=== PATIENT | female | born 1955 | race Caucasian/White ===

== ENCOUNTER 2017-01-31 11:40 | Day surgery (SDC) | payer MEDICARE ==
[~2017-01-31] VITALS: Ht 154.9 cm; Wt 60.5 kg
--- NOTE | ~2017-01-31 | OP ---
PATIENT NAME: SHYAM LÓPEZ MEDICAL RECORD: [id number] :51 LOCATION:[facility] ADMISSION DATE: SURGEON: MARK CASTILLO DO DATE OF OPERATION: 01/31/2017 PROCEDURE: EGD with biopsies. INDICATIONS FOR PROCEDURE: Epigastric abdominal pain and abnormal weight loss. SCOPE: Olympus video gastroscope. MEDICATIONS: Propofol 200 mg IV per anesthesia. ESTIMATED BLOOD LOSS: Minimal. FINDINGS: Informed consent was given. The patient was made comfortable with the above medication. After reaching an adequate level of sedation by slow IV push, the patient was placed on her left side. The endoscope was then advanced under direct visualization through the mouth to the second portion of the duodenum. There was some evidence of mild candidal esophagitis in the proximal, middle, and distal third of the esophagus. At the GE junction, there was some evidence of mild LA class A reflux induced esophagitis. The endoscope was advanced through the GE junction and retroflexed to view the cardia, where a small sliding hiatal hernia was present. On normal 4-view, the body and antrum of the stomach appeared normal. The endoscope was advanced beyond the pylorus into the duodenum where the bulb and second portion of the duodenum appeared normal. It was then withdrawn back into the stomach and random biopsies were taken from the antrum, incisura, and body of the stomach to submit for histology and to rule out H. pylori. The endoscope was then withdrawn from the patient. The patient tolerated the procedure well and there were no complications. IMPRESSIONS: 1. Esophageal candidiasis. 2. Reflux esophagitis, LA class A. 3. Small sliding hiatal hernia. PLAN AND RECOMMENDATIONS: 1. Discharge home when recovery parameters are met. 2. Diflucan 100 mg daily times 21 days with 2 tablets taken day 1. 3. Consider checking a fecal pancreatic elastase and a fecal fat content and resuming Creon if evidence of exocrine insufficiency. The patient's abdominal pain may be related to a recent diagnosis of pancreatitis. If this is the case, she may benefit from chronic pain management. We will await treatment of her esophageal candidiasis and reevaluate her symptoms. TRANSINT:[id number] Voice Confirmation ID: [id number] DOCUMENT ID: [id number] OPERATIVE REPORT [id number] SHYAM LÓPEZMARK MAKI DO CC: [id number] DICTATION DATE: 01/31/17 1446 [employer] SUPERVISOR: 02/01/17 0020 [facility] 01/31/17 [facility] [address] [facility] [address]
[~2017-01-31 11:40] MED LIST: ASPIRIN325 MG PO; BAYER CHEWABLE81 MG PO; CELEXA40 MG PO; PLAVIX75 MG PO; PRINIVIL20 MG PO; PROTONIX40 MG PO; SYMBICORT 16010.2 GM INH; TAMOXIFEN CITRA20 MG PO; ZANTAC150 MG PO
[2017-01-31 12:43] LABS: BASOPHILS 0.6 % (0-2); EOSINOPHILS 4.4 % (0-7); HEMATOCRIT 39.8 % (36.0-48.0); HEMOGLOBIN 12.7 g/dL (12-16); IMMATURE GRANULOCYTES 0.2 % (0-5); LYMPHOCYTES 25.6 % (15-50); MCH 32.1 pg (26.0-34.0); MCHC 31.9 g/dL (31.0-37.0); MCV 100.5 fL (80.0-100.0); MEAN PLATELET VOLUME 10.3 fL (7.4-10.4); NEUTROPHILS 61.2 % (40-80); PLATELET COUNT 185 10x3/uL (130-400); RBC 3.96 10x6/uL (4.00-5.40); RDW 13.8 % (11.5-14.5); WBC 6.4 10x3/uL (4.8-10.8)
[2017-01-31] MEDS ORDERED: PROVENTIL HFA6.7 GM INH (12:49)
[2017-01-31 12:55] VITALS: BP 107/64; Ht 154.9 cm; Wt 60.5 kg
[2017-01-31 13:02] LABS: ALBUMIN 3.3 g/dL (3.4-5.0); ALKALINE PHOSPHATASE 47 U/L (46-116); ALT (SGPT) 19 U/L (10-68); BILIRUBIN - TOTAL 0.26 mg/dL (0.2-1.3); CALC OSMOLALITY 282 mosm/kg (275-300); CALCIUM 8.5 mg/dL (8.5-10.1); CARBON DIOXIDE 28.6 mmol/L (21.0-32.0); CHLORIDE - SERUM 107 mmol/L (98-107); CREATININE - SERUM 0.8 mg/dL (0.6-1.3); GLUCOSE 95 mg/dL (74-106); PROTEIN - SERUM 6.9 g/dL (6.4-8.2); SODIUM 142 mmol/L (136-145); UREA NITROGEN 12 mg/dL (7-18); eGFR NON AFRICAN AMERICAN 77 mL/min (90-120)
[2017-01-31 13:21] LABS: APTT 23.1 SECONDS (22.8-39.4); INR 0.96 (0.85-1.17); PROTIME 12.6 SECONDS (11.6-15.0)
--- NOTE | 2017-01-31 15:35 | NUR ---
1455- BACK TO ROOM WITH HOB ELEVATED, SPOKE WITH ABOUT PROCEDURE. 1520- REPIRATORY AT BEDSIDE ADMINISTERING BREATHING TREATMENT. REMAINS AT BEDSIDE. WILL MONITOR. VSS. 1525- FULL LIQUIDS OFFERED.
--- NOTE | 2017-01-31 17:09 | NUR ---
1545- PT SITTING UP WITH HOB ELEVATED. RESP EFFORT EVEN/UNLABORED 1600- IV D/C'D, PT TOLERATED. CATHETER INTACT. 1620- PRESCRIPTION CALLED TO [email or web address] [facility] PER PT REQUEST. 1625- DISCHARGE INSTRUCTIONS COMPLETED, PT VERBALIZES UNDERSTANDING. PAPERWORK SIGNED. 1630- PT DISCHARGED VIA WHEELCHAIR WITH .
== END 2017-01-31 16:30 | disposition home or self-care (01) ==
LOC: D.OPS 11:40
PROVIDERS: Anesthesiology
DX: R10.13 Epigastric pain (principal); R63.4 Abnormal weight loss; K44.9 Diaphragmatic hernia without obstruction or gangrene; K21.0 Gastro-esophageal reflux disease with esophagitis; B37.81 Candidal esophagitis; Z01.812 Encounter for preprocedural laboratory examination; F17.200 Nicotine dependence, unspecified, uncomplicated

== ENCOUNTER → 2019-08-04 11:40 | Outpatient (CLI) | payer MEDICARE ==
[2017-01-31 12:55] VITALS: BMI 25.1
[~2019-08-04 11:40] MED LIST changes: +PROVENTIL HFA6.7 GM INH
--- NOTE | 2019-08-06 12:49 | ST ---
PATIENT:SHYAM LÓPEZ MEDICAL RECORD: [id number] SEX: F LOCATION:[facility] ORDER #: ADMISSION DATE: 08/04/19 AGE OF PATIENT: 64 REFERRING PHYSICIAN: INTERPRETING PHYSICIAN: BOOM VELEZ MD DATE OF SERVICE: 08/04/2019 Nuclear Stress Test INDICATIONS: Angina, shortness of breath, hypertension. He was exercised on standard Lexiscan protocol with 33 mCi of sestamibi injected at peak stress, 11 mCi were used previously for rest images. FINDINGS: Gated SPECT reveals preserved ejection fraction at 68% with good wall motion and thickening and brightening throughout all segments. SPECT imaging Cardiolite was used as myocardial fusion agent. There is homogeneous uptake throughout all segments at rest and stress with no evidence of inducible ischemia or previous infarction. OVERALL IMPRESSION: 1. This is a normal nuclear stress test with no evidence of inducible ischemia or previous infarction. 2. Gated SPECT reveals a preserved ejection fraction at 68%. In this patient with ongoing symptomatology, the current scan does not suggest the presence of hemodynamically significant coronary artery disease. Evaluate noncardiac etiology of chest pain. TRANSINT:[id number] Voice Confirmation ID: [id number] DOCUMENT ID: [id number] BOOM VELEZ MD at 1249 CC: ANÍBAL LUGO MD [id number] DICTATION DATE: 08/05/19 1547 CUT OUT PRESS OPERATOR: 08/06/19 0426 DEP CLI 08/04/19 [id number] [place] [address]
== END | disposition home or self-care (01) ==
LOC: D.HCCARDIO 11:40
PROVIDERS: ATTEND Internal Medicine Interventional Cardiology
DX: I20.9 Angina pectoris, unspecified (principal)